=== PATIENT | male | born 1960 | race Caucasian/White ===

== ENCOUNTER → 2022-12-30 12:36 | Outpatient (CLI) | payer OTHER, SELFPAY ==
--- NOTE | 2022-12-30 12:37 | DI.US.S_ITS ---
PROCEDURE: US PERIPH VENOUS LOW EXTREM LT INDICATIONS: RULE OUT DVT TECHNIQUE: Real-time imaging, as well as color and pulse Doppler interrogation, were performed of the lower extremity deep veins from the inguinal ligament to the popliteal fossa. COMPARISON: None. FINDINGS: The common femoral, femoral and popliteal veins are normally compressible, and free of intraluminal thrombus. Color and pulse Doppler demonstrate normal phasic intraluminal flow. There is normal augmentation response to distal compression maneuver. IMPRESSION: No deep venous thrombosis. Dictated by: Sara Kirby M.D. on 12/30/2022 at 16:18 Approved by: Sara Kirby M.D. on 12/30/2022 at 16:19
== END ==
PROVIDERS: PCP Physician Assistant Medical; Referring Provider Physician Assistant Medical; Visit Provider Physician Assistant Medical
DX: M25.472 Effusion, left ankle (principal)
CPT/HCPCS: 93971

== ENCOUNTER → 2023-01-06 08:47 | Outpatient (CLI) | payer OTHER, SELFPAY ==
[2023-01-06 20:28] LABS: Alanine Aminotransferase 38 IU/L (<50); Albumin 4.1 g/dL (3.5-5.0); Albumin Globulin Ratio 1.5 (1.0-2.8); Alkaline Phosphatase 57 U/L (38-126); Aspartate Aminotransferase 29 IU/L (17-59); BUN Creatinine Ratio 21.7 (6-22); Bilirubin Total 0.7 mg/dL (0.2-1.3); Blood Urea Nitrogen 20 mg/dL (9-20); C-Reactive Protein Quant < 0.5 mg/dL (<1.0); Calcium 9.1 mg/dL (8.4-10.2); Carbon Dioxide 27 mmol/L (22-32); Chloride 103 mmol/L (98-107); Cholesterol 209 mg/dL (140-199); Estimated Glomerular Filt Rate > 60 mL/min (>60); Globulin 2.7 g/dL (1.7-4.1); Glucose 110 mg/dL (80-110); HDL Cholesterol 44 mg/dL (40-60); HEMOLYSIS 34 (0-50); LDL Cholesterol Calculated 140 mg/dL (<100); Potassium 4.5 mmol/L (3.4-5.1); Sodium 138 mmol/L (137-145); Total Protein 6.8 g/dL (6.3-8.2); Triglycerides 126 mg/dL (35-150)
[2023-01-06 20:54] LABS: TSH w/ Reflex to FT4 2.49 uIU/mL (0.47-4.68)
[2023-01-06 20:58] LABS: Add Manual Diff / Slide Review NO; Basophils Absolute Auto 100 /uL (0-100); Basophils Percent Auto 0.7 % (0-2); Eosinophils Absolute Auto 100 /uL (0-450); Eosinophils Percent Auto 0.5 % (2-4); Hematocrit 46.1 % (41-53); Hemoglobin 16.1 g/dL (13.5-17.5); Lymphocytes Absolute Auto 3800 /uL (1100-4500); Lymphocytes Percent Auto 30.9 % (25-40); Mean Corpuscular Hemoglobin 34.2 PG (26-34); Mean Corpuscular Volume 97.7 fL (80-100); Monocytes Absolute Auto 1300 /uL (0-900); Monocytes Percent Auto 10.8 % (3-14); Neutrophils Absolute Auto 6900 /uL (1500-7000); Neutrophils Percent Auto 57.1 % (50-75); Platelet Count 241 X10^3/uL (150-400); Red Blood Cell Count 4.72 X10^6/uL (4.5-5.9); White Blood Cell Count 12.1 X10^3/uL (4.5-11.0)
[2023-01-06 22:23] LABS: Erythrocyte Sedimentation Rate 1 MM/HR (0-15)
== END ==
PROVIDERS: PCP Physician Assistant Medical; Visit Provider Physician Assistant Medical
DX: M25.472 Effusion, left ankle (principal); M25.572 Pain in left ankle and joints of left foot; I10 Essential (primary) hypertension
CPT/HCPCS: 80053; 80061; 84443; 84550; 85025; 85651; 86140

== ENCOUNTER → 2023-04-14 11:27 | Outpatient (CLI) | payer OTHER, SELFPAY ==
[2023-04-14 19:29] LABS: HEMOLYSIS < 15 (0-50)
[2023-04-14 19:39] LABS: Alanine Aminotransferase 43 IU/L (<50); Albumin 4.4 g/dL (3.5-5.0); Albumin Globulin Ratio 1.7 (1.0-2.8); Alkaline Phosphatase 43 U/L (38-126); Aspartate Aminotransferase 29 IU/L (17-59); BUN Creatinine Ratio 14.1 (6-22); Bilirubin Total 0.9 mg/dL (0.2-1.3); Blood Urea Nitrogen 11 mg/dL (9-20); Calcium 9.6 mg/dL (8.4-10.2); Carbon Dioxide 26 mmol/L (22-32); Chloride 102 mmol/L (98-107); Estimated Glomerular Filt Rate > 60 mL/min (>60); Globulin 2.6 g/dL (1.7-4.1); Glucose 138 mg/dL (80-110); Potassium 4.4 mmol/L (3.4-5.1); Sodium 135 mmol/L (137-145)
[2023-04-14 19:52] LABS: LDL Cholesterol Direct 128 mg/dL (<100)
[2023-04-15 16:35] LABS: Prostate Specific Antigen Scrn 1.89 ng/mL (0.1-4.0)
== END ==
PROVIDERS: PCP Physician Assistant Medical; Visit Provider Family Medicine
DX: I10 Essential (primary) hypertension (principal); E78.2 Mixed hyperlipidemia; Z12.5 Encounter for screening for malignant neoplasm of prostate
CPT/HCPCS: 80053; 83721; G0103

== ENCOUNTER → 2023-09-03 12:52 | Outpatient (CLI) | payer MEDICARE, SELFPAY ==
[2023-09-03 19:11] LABS: Hematocrit 47.1 % (41-53); Hemoglobin 16.7 g/dL (13.5-17.5); Mean Corpuscular HGB Conc 35.5 % (30-36); Mean Corpuscular Hemoglobin 33.3 PG (26-34); Mean Corpuscular Volume 93.8 fL (80-100); Platelet Count 269 X10^3/uL (150-400); Red Blood Cell Count 5.02 X10^6/uL (4.5-5.9); Red Cell Distribution Width 12.9 % (11.6-14.8); White Blood Cell Count 8.5 X10^3/uL (4.5-11.0)
[2023-09-03 19:41] LABS: Alanine Aminotransferase 37 IU/L (<50); Albumin 4.2 g/dL (3.5-5.0); Albumin Globulin Ratio 1.4 (1.0-2.8); Alkaline Phosphatase 46 U/L (38-126); Aspartate Aminotransferase 40 IU/L (17-59); BUN Creatinine Ratio 15.4 (6-22); Bilirubin Total 0.9 mg/dL (0.2-1.3); Blood Urea Nitrogen 12 mg/dL (9-20); Calcium 9.4 mg/dL (8.4-10.2); Carbon Dioxide 26 mmol/L (22-32); Chloride 106 mmol/L (98-107); Estimated Glomerular Filt Rate > 60 mL/min (>60); Glucose 112 mg/dL (80-110); HEMOLYSIS < 15 (0-50); Potassium 4.4 mmol/L (3.4-5.1); Sodium 137 mmol/L (137-145); Total Protein 7.2 g/dL (6.3-8.2)
[2023-09-03 19:49] LABS: Hemoglobin A1C% w Est Avg Glu 5.4 % (4.0-6.0)
[2023-09-03 19:53] LABS: LDL Cholesterol Direct 140 mg/dL (<100)
[2023-09-03 19:57] LABS: Add Manual Diff / Slide Review YES
[2023-09-03 20:00] LABS: Neutrophils Absolute Manual 3910 /uL (3000-5900); RBC Morphology Normal Morphology; Total Cells Counted 100
== END ==
PROVIDERS: PCP Family Medicine; Visit Provider Family Medicine
DX: I10 Essential (primary) hypertension (principal); R73.9 Hyperglycemia, unspecified; E78.2 Mixed hyperlipidemia
CPT/HCPCS: 80053; 83036; 83721; 85007; 85025

== ENCOUNTER → 2024-08-16 09:26 | Outpatient (CLI) | payer MEDICARE, SELFPAY ==
[2024-08-16 19:21] LABS: Add Manual Diff / Slide Review NO; Basophils Absolute Auto 100 /uL (0-100); Basophils Percent Auto 0.7 % (0-2); Eosinophils Absolute Auto 200 /uL (0-450); Eosinophils Percent Auto 2.3 % (2-4); Hematocrit 48.5 % (41-53); Lymphocytes Absolute Auto 2300 /uL (1100-4500); Lymphocytes Percent Auto 31.2 % (25-40); Mean Corpuscular Hemoglobin 33.9 PG (26-34); Mean Corpuscular Volume 96.8 fL (80-100); Monocytes Absolute Auto 800 /uL (0-900); Monocytes Percent Auto 10.4 % (3-14); Neutrophils Absolute Auto 4100 /uL (1500-7000); Neutrophils Percent Auto 55.4 % (50-75); Platelet Count 235 X10^3/uL (150-400); Red Blood Cell Count 5.01 X10^6/uL (4.5-5.9); White Blood Cell Count 7.4 X10^3/uL (4.5-11.0)
[2024-08-16 19:23] LABS: Alanine Aminotransferase 35 IU/L (<50); Albumin 4.2 g/dL (3.5-5.0); Albumin Globulin Ratio 1.7 (1.0-2.8); Alkaline Phosphatase 48 U/L (38-126); Aspartate Aminotransferase 30 IU/L (17-59); BUN Creatinine Ratio 18.4 (6-22); Bilirubin Total 0.8 mg/dL (0.2-1.3); Blood Urea Nitrogen 16 mg/dL (9-20); Calcium 9.4 mg/dL (8.4-10.2); Carbon Dioxide 26 mmol/L (22-32); Chloride 105 mmol/L (98-107); Cholesterol 219 mg/dL (140-199); Estimated Glomerular Filt Rate > 60 mL/min (>60); Globulin 2.5 g/dL (1.7-4.1); Glucose 141 mg/dL (80-110); HDL Cholesterol 40 mg/dL (40-60); HEMOLYSIS < 15 (0-50); LDL Cholesterol Calculated 138 mg/dL (<100); Potassium 4.8 mmol/L (3.4-5.1); Sodium 137 mmol/L (137-145); Total Protein 6.7 g/dL (6.3-8.2); Triglycerides 206 mg/dL (35-150)
[2024-08-16 19:52] LABS: Thyroid Stimulating Hormone 2.31 uIU/mL (0.47-4.68)
== END ==
PROVIDERS: PCP Family Medicine; Visit Provider Family Medicine
DX: I10 Essential (primary) hypertension (principal); E78.2 Mixed hyperlipidemia; Z13.1 Encounter for screening for diabetes mellitus
CPT/HCPCS: 80053; 80061; 84443; 85025

== ENCOUNTER → 2024-10-12 10:51 | Outpatient (CLI) | payer MEDICARE, SELFPAY ==
[2024-10-12 19:38] LABS: Prostate Specific Antigen Scrn 1.39 ng/mL (0.1-4.0)
== END ==
PROVIDERS: PCP Family Medicine; Visit Provider Family Medicine
DX: Z12.5 Encounter for screening for malignant neoplasm of prostate (principal); R73.9 Hyperglycemia, unspecified; N40.1 Benign prostatic hyperplasia with lower urinary tract symptoms
CPT/HCPCS: 83036; G0103